=== PATIENT | male | born 1945 | race Caucasian/White ===

== ENCOUNTER 2019-01-29 13:49 | Inpatient (IN) ==
[2019-01-29 14:48] LABS: Basophils # 0.1 K/mcL (0.0-0.2); Basophils % 0.7 %; Eosinophils # 0.2 K/mcL (0.0-0.6); Eosinophils % 2.5 %; Hematocrit 38.8 % (37.5-50.1); Hemoglobin 12.9 g/dL (12.9-16.9); Immature Granulocytes % 0.2 % (0-4); Lymphocytes # 0.9 K/mcL (0.6-4.6); Lymphocytes % 10.6 %; Mean Corpuscular HGB Conc 33.2 g/dL (31.6-35.5); Mean Corpuscular Volume 96.3 fL (83.0-100.0); Mean Platelet Volume 12.7 fL (9.4-12.4); Monocytes # 0.8 K/mcL (0.0-1.3); Monocytes % 9.9 %; Neutrophils # 6.5 K/mcL (1.6-8.9); Platelet Count 198 K/mcL (140-400); Red Blood Count 4.03 M/mcL (4.19-5.50); Segmented Neutrophils % 76.1 %; White Blood Count 8.5 K/mcL (4.3-11.1)
[2019-01-29 14:56] LABS: INR 1.1; Prothrombin Time 12.2 Seconds (9.4-12.1)
[2019-01-29 14:56] LABS: VBG Ionized Calcium 1.21 mmol/L (1.15-1.35)
[2019-01-29] MEDS ORDERED: levETIRAcetam 1,000 MG in 0.9 % Sodium Chloride 100 ML IVPB ONE (15:01)
[2019-01-29 15:10] LABS: BUN/Creatinine Ratio 26 (6-26); Blood Urea Nitrogen 29 mg/dL (8-23); Calcium 9.5 mg/dL (8.6-10.3); Carbon Dioxide 27 mEq/L (23-29); Chloride 107 mEq/L (98-107); Glucose 99 mg/dL (70-105); Magnesium 1.7 mg/dL (1.6-2.6); Osmolality,Calculated 300 (280-300); Phosphorous 3.3 mg/dL (2.7-4.5); Potassium 3.9 mEq/L (3.5-5.1); Sodium 142 mEq/L (136-145); Troponin I 0.03 ng/mL (< 0.04); eGFR For African Americans > 60 (> 60); eGFR For Non-African Americans > 60 (> 60)
[2019-01-29 16:18] LABS: Bilirubin,Urine Negative (Negative); Blood,Urine Negative (Negative); Clarity,Urine Clear (Clear); Color,Urine Yellow (Yellow); Glucose,Urine (UA) Normal (Normal); Ketones,Urine Negative (Negative); Leukocyte Esterase,Urine Negative (Negative); Nitrite,Urine Negative (Negative); PH,Urine 6.5 pH Units (5.0-8.0); Protein,Urine Negative (Neg-Trace); Specific Gravity,Urine 1.016 (1.010-1.025); Urobilinogen,Urine Normal (Normal)
[2019-01-30] MEDS ORDERED: Naloxone 0.4 MG/ML INJ IVP PRN (06:01)
[2019-01-30] MEDS ORDERED: 0.9 % Sodium Chloride 1,000 ML IVC ONE (06:16)
[2019-01-30 06:50] LABS: Hematocrit 37.7 % (37.5-50.1); Hemoglobin 12.3 g/dL (12.9-16.9); Mean Corpuscular HGB Conc 32.6 g/dL (31.6-35.5); Mean Corpuscular Volume 98.2 fL (83.0-100.0); Mean Platelet Volume 12.7 fL (9.4-12.4); Platelet Count 179 K/mcL (140-400); Red Blood Count 3.84 M/mcL (4.19-5.50); White Blood Count 8.4 K/mcL (4.3-11.1)
[2019-01-30 07:09] LABS: BUN/Creatinine Ratio 28 (6-26); Blood Urea Nitrogen 28 mg/dL (8-23); Calcium 9.1 mg/dL (8.6-10.3); Carbon Dioxide 26 mEq/L (23-29); Chloride 109 mEq/L (98-107); Glucose 119 mg/dL (70-105); Osmolality,Calculated 309 (280-300); Potassium 3.6 mEq/L (3.5-5.1); Sodium 146 mEq/L (136-145); eGFR For African Americans > 60 (> 60); eGFR For Non-African Americans > 60 (> 60)
[2019-01-30] MEDS ORDERED: D5% in Water 1,000 ML IVC PRN (08:18)
[2019-01-30] MEDS ORDERED: Dextrose Gel 15 GM/37.5 ML TUBE PO PRN ×2 (08:18)
[2019-01-30] MEDS ORDERED: *HR* Dextrose 50 % in Water (Syg) 50 ML SYRINGE IVP PRN (08:18)
[2019-01-30] MEDS: Carbidopa/Levodopa ER 50/200 TABLET PO SCH ×2 (09:03→22:56)
[2019-01-30] MEDS: Carbidopa/Levodopa 25/100 TABLET PO SCH ×2 (09:03→22:56)
[2019-01-30] MEDS: rOPINIRole 0.25 MG TABLET PO SCH ×3 (09:03→22:56)
[2019-01-30] MEDS: Aspirin Enteric Coated 81 MG Tablet PO SCH (09:04)
[2019-01-30] MEDS: Lisinopril 20 MG TABLET PO SCH ×2 (09:04→22:56)
[2019-01-30] MEDS: Insulin LISPRO 300 UNITS/3 ML VIAL SQ SCH ×3 (11:59→22:23)
[2019-01-31 07:11] LABS: Hematocrit 38.6 % (37.5-50.1); Hemoglobin 12.9 g/dL (12.9-16.9); Mean Corpuscular HGB Conc 33.4 g/dL (31.6-35.5); Mean Corpuscular Volume 95.8 fL (83.0-100.0); Mean Platelet Volume 12.6 fL (9.4-12.4); Platelet Count 199 K/mcL (140-400); Red Blood Count 4.03 M/mcL (4.19-5.50); Red Cell Distribution Width 13.9 % (11.5-14.5); White Blood Count 8.5 K/mcL (4.3-11.1)
[2019-01-31 07:32] LABS: BUN/Creatinine Ratio 28 (6-26); Blood Urea Nitrogen 27 mg/dL (8-23); Calcium 9.2 mg/dL (8.6-10.3); Carbon Dioxide 27 mEq/L (23-29); Chloride 107 mEq/L (98-107); Glucose 125 mg/dL (70-105); Osmolality,Calculated 301 (280-300); Potassium 3.4 mEq/L (3.5-5.1); Sodium 142 mEq/L (136-145); eGFR For African Americans > 60 (> 60); eGFR For Non-African Americans > 60 (> 60)
[2019-01-31] MEDS: Carbidopa/Levodopa ER 50/200 TABLET PO SCH ×2 (08:35→21:36)
[2019-01-31] MEDS: Aspirin Enteric Coated 81 MG Tablet PO SCH (08:35)
[2019-01-31] MEDS: rOPINIRole 0.25 MG TABLET PO SCH ×3 (08:35→21:36)
[2019-01-31] MEDS: Carbidopa/Levodopa 25/100 TABLET PO SCH ×2 (08:35→21:36)
[2019-01-31] MEDS: Lisinopril 20 MG TABLET PO SCH ×2 (08:35→21:37)
[2019-01-31] MEDS: amLODIPine 5 MG TABLET PO SCH (08:35)
[2019-01-31] MEDS: Insulin LISPRO 300 UNITS/3 ML VIAL SQ SCH ×4 (08:36→21:19)
[2019-01-31] MEDS: *HR* Heparin 5,000 UNIT/ML VIAL SQ SCH (17:35)
[2019-02-01] MEDS: *HR* Heparin 5,000 UNIT/ML VIAL SQ SCH ×2 (06:04→17:43)
[2019-02-01] MEDS: Lisinopril 20 MG TABLET PO SCH ×2 (07:48→21:15)
[2019-02-01] MEDS: Aspirin Enteric Coated 81 MG Tablet PO SCH (07:48)
[2019-02-01] MEDS: Carbidopa/Levodopa 25/100 TABLET PO SCH ×2 (07:48→21:15)
[2019-02-01] MEDS: Insulin LISPRO 300 UNITS/3 ML VIAL SQ SCH ×4 (07:48→21:12)
[2019-02-01] MEDS: rOPINIRole 0.25 MG TABLET PO SCH ×3 (07:48→21:16)
[2019-02-01] MEDS: amLODIPine 5 MG TABLET PO SCH (07:48)
[2019-02-01] MEDS: Carbidopa/Levodopa ER 50/200 TABLET PO SCH ×2 (07:48→21:15)
[2019-02-01 11:20] LABS: BUN/Creatinine Ratio 30 (6-26); Blood Urea Nitrogen 27 mg/dL (8-23); Calcium 9.1 mg/dL (8.6-10.3); Carbon Dioxide 26 mEq/L (23-29); Chloride 109 mEq/L (98-107); Glucose 187 mg/dL (70-105); Magnesium 1.6 mg/dL (1.6-2.6); Osmolality,Calculated 308 (280-300); Phosphorous 3.1 mg/dL (2.7-4.5); Potassium 3.4 mEq/L (3.5-5.1); Sodium 144 mEq/L (136-145); eGFR For African Americans > 60 (> 60); eGFR For Non-African Americans > 60 (> 60)
[2019-02-02] MEDS: *HR* Heparin 5,000 UNIT/ML VIAL SQ SCH (05:29)
[2019-02-02] MEDS: Lisinopril 20 MG TABLET PO SCH (08:07)
[2019-02-02] MEDS: rOPINIRole 0.25 MG TABLET PO SCH (08:07)
[2019-02-02] MEDS: amLODIPine 5 MG TABLET PO SCH (08:07)
[2019-02-02] MEDS: Aspirin Enteric Coated 81 MG Tablet PO SCH (08:07)
[2019-02-02] MEDS: Carbidopa/Levodopa 25/100 TABLET PO SCH (08:08)
[2019-02-02] MEDS: Carbidopa/Levodopa ER 50/200 TABLET PO SCH (08:08)
[2019-02-02] MEDS: Insulin LISPRO 300 UNITS/3 ML VIAL SQ SCH ×2 (08:16→12:54)
[2019-02-02 11:11] VITALS: BP 139/79
[2019-02-02] MEDS ORDERED: FLU Vac QV 19-20 (6Month+)/PF 0.5 ML SYRINGE IM ONE (12:08)
== END 2019-02-02 13:06 | disposition home health service (06) | DRG 101 ==
LOC: EMEROOARM 13:49 → 3BNU 13:49 → SUATTDRO 02-01 14:38
PROVIDERS: ADMIT Family Medicine; ATTEND Internal Medicine